=== PATIENT | male | born 1950 | race Caucasian/White ===

== ENCOUNTER 2016-10-12 07:03 | Day surgery (SDC) | payer MEDICARE ==
[2016-10-07 15:44] VITALS: BMI 24.9
[~2016-10-12 07:03] MED LIST: LACTATED RINGERS 1,000 ML IV SCH
[2016-10-12 07:18] VITALS: TEMP 97.8
[2016-10-12] MEDS ORDERED: fentaNYL (PF) 50 MCG/ML 2 ML AMP ONE (08:06)
[2016-10-12] MEDS ORDERED: PROPOFOL 10 MG/ML 20 ML VIAL IV ONE (08:06)
[2016-10-12] MEDS ORDERED: MIDAZOLAM 2 MG/2 ML VIAL ONE (08:06)
--- NOTE | 2016-10-12 08:10 | P.GSHP ---
History of Present Illness H&P Date: 10/12/16 Chief Complaint: Screening colonoscopy This is a 66-year-old male who presents today for screening colonoscopy. His last colonoscopy approximately 8 years ago. Patient denies any significant GI complaints. - Constitutional Constitutional: Reports as per HPI Past Medical History Past Medical History: Cancer, Hyperlipidemia, Prostate Disorder Additional Past Medical History / Comment(s): BPH. Basal and Squamous cell CA. History of Any Multi-Drug Resistant Organisms: None Reported Past Surgical History: Orthopedic Surgery Additional Past Surgical History / Comment(s): Colonoscopy x3. Tooth extractions. L knee arthroscopic surgery 2013. Multiple basal and squamous cell CA removals. Past Anesthesia/Blood Transfusion Reactions: No Reported Reaction Past Psychological History: No Psychological Hx Reported Smoking Status: Never smoker Past Alcohol Use History: Daily Additional Past Alcohol Use History / Comment(s): 2 glasses of wine/day. Past Drug Use History: None Reported - Past Family History Mother Family Medical History: Cancer Additional Family Medical History / Comment(s): Colon CA. Medications and Allergies Home Medications Medication Instructions Recorded Confirmed Type Ascorbic Acid [Vitamin C] 500 mg PO DAILY 10/07/16 10/12/16 History Aspirin [Adult Low Dose Aspirin EC] 81 mg PO [facility] 10/07/16 10/12/16 History Co Q-10 Unk 200 mg PO [facility] 10/07/16 10/12/16 History Fish Oil/Omega3 1 tab PO [facility] 10/07/16 10/12/16 History Simvastatin [Zocor] 20 mg PO HS 10/07/16 10/12/16 History Tamsulosin [Flomax] 0.4 mg PO [facility] 10/07/16 10/12/16 History Vitamin D3 Unk 5,000 unit PO M 10/07/16 10/12/16 History Allergies Allergy/AdvReac Type Severity Reaction Status Date / Time No Known Allergies Allergy Verified 10/07/16 15:17 Surgical - Exam Vital Signs Temp Pulse Resp BP Pulse Ox 97.8 F 74 16 126/81 94 L 10/12/16 07:17 10/12/16 07:17 10/12/16 07:17 10/12/16 07:17 10/12/16 07:17 - General well developed, no distress - Eyes PERRL - ENT normal pinna - Neck no masses - Respiratory normal expansion - Cardiovascular Rhythm: regular - Abdomen Abdomen: soft, non tender Assessment and Plan Plan: We will perform screening colonoscopy.
--- NOTE | 2016-10-12 08:32 | P.OP ---
Date of Procedure: 10/12/16 Preoperative Diagnosis: Screening colonoscopy Postoperative Diagnosis: Normal Screening colonoscopy Procedure(s) Performed: Colonoscopy Anesthesia: MAC Surgeon: Giovanny Cleaning Pathology: none sent Condition: stable Disposition: PACU Description of Procedure: PROCEDURE: The patient was placed on the endoscopy table in the lateral position. Digital rectal examination was performed which revealed no abnormalities. The prostate was symmetrical without nodules. Flexible colonoscope was then placed in the patient's anus and passed throughout the entire colon. The ileocecal valve was visualized. The cecum, ascending, transverse, descending and sigmoid colon were normal. The rectum was normal as well. There were no masses, polyps or diverticula noted in the entire colon. SUMMARY OF FINDINGS: Normal colonoscopy.
[2016-10-12 08:35] VITALS: RESP 18
[2016-10-12 09:16] VITALS: BP 117/74; PULSE 61
== END 2016-10-12 08:30 | disposition home or self-care (01) ==
LOC: ORWHC2ENDO 07:03
PROVIDERS: ATTEND Surgery
DX: Z12.11 Encounter for screening for malignant neoplasm of colon (principal); E78.5 Hyperlipidemia, unspecified; N42.9 Disorder of prostate, unspecified; Z79.82 Long term (current) use of aspirin; Z79.899 Other long term (current) drug therapy
CPT/HCPCS: J2250; J3010; J2704; G0121; 99153

== ENCOUNTER 2024-07-31 21:54 | Emergency (ER) | payer MEDICARE ==
--- NOTE | 2024-07-31 22:32 | ED ---
General Adult HPI - General Source: patient, RN notes reviewed, old records reviewed Mode of arrival: wheelchair <Steve Pedroza - Last Filed: 07/31/24 22:33> <Shamir Kim - Last Filed: 08/01/24 01:40> - General Chief complaint: Shortness of Breath Stated complaint: STANISLAV Time Seen by Provider: 07/31/24 22:05 - History of Present Illness Initial comments: Patient is a 74-year-old male presents emergency department for shortness of breath. Is been dealing with cold-like symptoms for approximately 3 days. Has been having a nonproductive cough. States it was progressively worsening throughout the day today however worsened approximately 1 hour ago which is why presents for further evaluation. Denies any known sick contacts. Endorses mild congestion. Denies sore throat. Denies abdominal pain, nausea, vomiting. D enies any chest pain. Is not a smoker. Has had issues with bronchospasms in the past. Patient has a history of atrial fibrillation as well. Vital signs within acceptable limits in triage. Presents for further evaluation. (Steve Pedroza) - Related Data Home Medications Medication Instructions Recorded Confirmed Aspirin [Adult Low Dose Aspirin EC] 81 mg PO QAM 10/07/16 10/25/22 Alfuzosin HCl [Alfuzosin HCl ER] 10 mg PO HS 05/31/22 10/25/22 Atorvastatin [Lipitor] 20 mg PO HS 05/31/22 10/25/22 Metoprolol Tartrate [Lopressor] 25 mg PO BID 10/25/22 10/25/22 Ubidecarenone [Co Q-10] 200 mg PO DAILY 10/25/22 10/25/22 Previous Rx's Medication Instructions Recorded Omeprazole [PriLOSEC] 20 mg PO AC-BRKFST #90 cap 11/02/22 Albuterol Inhaler [Ventolin Hfa 2 puff INHALATION Q4HR PRN #8 gm 08/01/24 Inhaler] predniSONE 60 mg PO DAILY #30 tab 08/01/24 Allergies Allergy/AdvReac Type Severity Reaction Status Date / Time No Known Allergies Allergy Verified 07/31/24 21:59 Review of Systems ROS Other: All systems not noted in ROS Statement are negative. <Steve Pedroza - Last Filed: 07/31/24 22:33> ROS Other: All systems not noted in ROS Statement are negative. <Shamir Kim - Last Filed: 08/01/24 01:40> ROS Statement: Those systems with pertinent positive or pertinent negative responses have been documented in the HPI. Review of Systems: CONST: Denies fever EYES: Denies blurry vision ENT: Denies nasal congestion C/V: Denies Chest pain RESP: Endorses dyspnea GI: Denies abdominal pain : Denies dysuria SKIN: Denies rash. MSK: Denies joint pain. NEURO: Denies headache (Steve Pedroza) Past Medical History Past Medical History: Atrial Fibrillation, Cancer, Hyperlipidemia, Prostate Disorder Additional Past Medical History / Comment(s): BPH. Basal and Squamous cell skin cancer., states some abnormal wbc's and rbc's (no tx)., frequent stools. History of Any Multi-Drug Resistant Organisms: None Reported Past Surgical History: Hernia Repair, Orthopedic Surgery Additional Past Surgical History / Comment(s): Colonoscopy x4. Tooth extracti ons. L knee arthroscopic surgery 2013. Multiple basal and squamous cell CA removals. Past Anesthesia/Blood Transfusion Reactions: No Reported Reaction Past Psychological History: No Psychological Hx Reported Smoking Status: Never smoker Past Alcohol Use History: Daily Past Drug Use History: None Reported - Past Family History Mother Family Medical History: Cancer Additional Family Medical History / Comment(s): Colon CA. <Steve Pedroza - Last Filed: 07/31/24 22:33> General Exam <Steve Pedroza - Last Filed: 07/31/24 22:33> - General Exam Comments Initial Comments: General: Appears in no acute distress. HEAD: Normal with no signs of head trauma. EYES: PERRLA, EOMI, conjunctiva normal, no discharge. ENT: Hearing grossly intact, normal oropharynx. RESPIRATORY: Patient has bilateral end expiratory wheezing. No significant increased work of breathing. No significant hypoxia. C/V: Regular rate and rhythm. S1 and S2 auscultated, no edema, peripheral pulses 2+ and intact throughout ABD: Abd is soft, nontender, nondistended EXT: Normal range of motion, no obvious deformity SKIN: No rashes or lesions observed on exposed skin. NEURO: Alert and oriented x 4. (Steve Pedroza) Course Vital Signs 07/31/24 07/31/24 07/31/24 21:55 22:00 23:23 Temperature 98.1 F Pulse Rate 83 70 Respiratory 18 18 Rate Blood Pressure 151/88 O2 Sat by Pulse 97 Oximetry 07/31/24 07/31/24 23:31 23:50 Temperature Pulse Rate 72 73 Respiratory 16 Rate Blood Pressure 145/79 O2 Sat by Pulse 97 Oximetry Medical Decision Making - EKG Data -: EKG Interpreted by Me <Steve Pedroza - Last Filed: 07/31/24 22:33> - Lab Data Result diagrams: 07/31/24 22:26 07/31/24 22:26 <Shamir Kim - Last Filed: 08/01/24 01:40> - Medical Decision Making Was pt. sent in by a medical professional or institution (, PA, DETENTION ATTENDANT, urgent care, hospital, or correction...) When possible be specific @ -No Did you speak to anyone other than the patient for history (EMS, parent, family, police, friend...)? What history was obtained from this source @ -No Did you review nursing and triage notes (agree or disagree)? Why? @ -I reviewed and agree with nursing and triage notes Were old charts reviewed (outside hosp., previous admission, EMS record, old EKG, old radiological studies, urgent care reports/EKG's, correction records)? Report findings @ -No old charts were reviewed Differential Diagnosis (chest pain, altered mental status, abdominal pain women, abdominal pain men, vaginal bleeding, weakness, fever, dyspnea, syncope, headache, dizziness, GI bleed, back pain, seizure, CVA, palpatations, mental health, musculoskeletal)? @ -Differential Dyspnea: Coronary syndrome, arrhythmia, tamponade, asthma, COPD, pulmonary embolism, pneumonia, pneumothorax, pulmonary effusion, anaphylaxis, diabetic ketoacidosis, flailed chest, pulmonary contusion, diaphragmatic rupture, anemia, neuromuscular, this is not meant to be an all-inclusive list. EKG interpreted by me (3pts min.). @ -As above X-rays interpreted by me (1pt min.). @ -Chest x-ray reveals no obvious pneumothorax. CT interpreted by me (1pt min.). @ -None done U/S interpreted by me (1pt. min.). @ -None done What testing was considered but not performed or refused? (CT, X-rays, U/S, labs)? Why? @ -None What meds were considered but not given or refused? Why? @ -None Did you discuss the management of the patient with other professionals (professionals i.e. , PA, DETENTION ATTENDANT, lab, RT, psych nurse, social work specialist, stove refinisher, teacher, event security officer, social work case manager)? Give summary @ -No Was smoking cessation discussed for >3mins.? @ -No Was critical care preformed (if so, how long)? @ -No Were there social determinants of health that impacted care today? How? (Homelessness, low income, unemployed, alcoholism, drug addiction, transportation, low edu. Level, literacy, decrease access to med. care, custodial, rehab)? @ -No Was there de-escalation of care discussed even if they declined (Discuss DNR or withdrawal of care, Hospice)? DNR status @ -No What co-morbidities impacted this encounter? (DM, HTN, Smoking, COPD, CAD, Cancer, CVA, ARF, Chemo, Hep., AIDS, mental health diagnosis, sleep apnea, morbid obesity)? @ -None Was patient admitted / discharged? Hospital course, mention meds given and route, prescriptions, significant lab abnormalities, going to OR and other pertinent info. @ -Patient presents emergency department with multiple days of cold-like symptoms progressing to worsening shortness of breath today. On exam patient is wheezing bilaterally despite no clinical history of COPD or asthma. May have bronchospasm. Will obtain viral swabs, basic labs, screening EKG, chest x-ray. Patient will be symptomatically treated with IV steroids, fluids, breathing tr eatment. Patient in agreement this plan. Portable chest x-ray reveals no of obvious evidence of pneumothorax. EKG shows no signs of acute ischemia. Undiagnosed new problem with uncertain prognosis? @ -No Drug Therapy requiring intensive monitoring for toxicity (Heparin, Nitro, Insulin, Cardizem)? @ -No Were any procedures done? @ -No (Steve Pedroza) - Lab Data Lab Results 07/31/24 07/31/24 07/31/24 Range/Units 22:26 22:26 22:26 WBC 7.9 (3.8-10.6) k/uL RBC 4.53 (4.30-5.90) m/uL Hgb 14.7 (13.0-17.5) gm/dL Hct 44.5 (39.0-53.0) % MCV 98.2 (80.0-100.0) fL MCH 32.4 (25.0-35.0) pg MCHC 33.0 (31.0-37.0) g/dL RDW 13.0 (11.5-15.5) % Plt Count 194 (150-450) k/uL MPV 7.7 Neutrophils % 77 % Lymphocytes % 14 % Monocytes % 5 % Eosinophils % 2 % Basophils % 1 % Neutrophils # 6.1 (1.3-7.7) k/uL Lymphocytes # 1.1 (1.0-4.8) k/uL Monocytes # 0.4 (0-1.0) k/uL Eosinophils # 0.2 (0-0.7) k/uL Basophils # 0.1 (0-0.2) k/uL Sodium 135 L (137-145) mmol/L Potassium 4.0 (3.5-5.1) mmol/L Chloride 106 (98-107) mmol/L Carbon Dioxide 23 (22-30) mmol/L Anion Gap 6 mmol/L BUN 23 H (9-20) mg/dL Creatinine 0.77 (0.66-1.25) mg/dL Est GFR (CKD-EPI)AfAm >90 (>60 ml/min/1.73 sqM) Est GFR (CKD-EPI)NonAf 90 (>60 ml/min/1.73 sqM) Glucose 91 (74-99) mg/dL Calcium 9.3 (8.4-10.2) mg/dL Magnesium 2.0 (1.6-2.3) mg/dL Total Bilirubin 0.6 (0.2-1.3) mg/dL AST 30 (17-59) U/L ALT 32 (4-49) U/L Alkaline Phosphatase 86 (38-126) U/L Total Protein 7.4 (6.3-8.2) g/dL Albumin 4.8 (3.5-5.0) g/dL Influenza Type A (PCR) Not Detected (Not Detectd) Influenza Type B (PCR) Not Detected (Not Detectd) RSV (PCR) Not Detected (Not Detectd) SARS-CoV-2 (PCR) Not Detected (Not Detectd) - EKG Data EKG Comments: 12-lead Electrocardiogram Interpretation Note EKG was reviewed and interpreted by myself. 12-lead ECG performed at 2207 is interpreted by me as revealing normal sinus rhythm at a rate of 83 beats per minute. [place] is normal. IN interval is 163 ms, QRS duration is 100 ms, QTc is 411 ms.. There were no ST or T wave abnormalities to suggest myocardial ischemia or injury. R wave progression across the precordium was satisfactory. By my interpretation this EKG is non-diagnostic for acute ischemia. (Steve Pedroza) Disposition <Steve Pedroza - Last Filed: 07/31/24 22:33> Is patient prescribed a controlled substance at d/c from ED?: No <Shamir Kim - Last Filed: 08/01/24 01:40> Clinical Impression: Bronchitis Disposition: HOME SELF-CARE Condition: Good Instructions (If sedation given, give patient instructions): Acute Bronchitis (ED) Prescriptions: predniSONE 60 mg PO DAILY #30 tab Albuterol Inhaler [Ventolin Hfa Inhaler] 2 puff INHALATION Q4HR PRN #8 gm PRN Reason: Wheezing Referrals: Alberto Saleh MD [Primary Care Provider] - 1-2 days
--- NOTE | 2024-07-31 22:33 | XR ---
EXAMINATION TYPE: XR chest 1V portable DATE OF EXAM: 07/31/2024 COMPARISON: NONE HISTORY: Cough. TECHNIQUE: Single AP portable frontal upright view of the chest is obtained. FINDINGS: Overlying EKG leads are seen. There is no focal air space opacity, pleural effusion, or pn eumothorax seen. The cardiac silhouette size is within normal limits. The osseous structures are i ntact. IMPRESSION: No acute pulmonary infiltrate. [facility], , 07/31/2024 10:31 PM
[2024-07-31 22:41] LABS: Basophils # (A) 0.1 k/uL (0-0.2); Basophils % (A) 1 %; Eosinophils # (A) 0.2 k/uL (0-0.7); Eosinophils % (A) 2 %; HCT 44.5 % (39.0-53.0); HGB 14.7 gm/dL (13.0-17.5); Lymphocytes # (A) 1.1 k/uL (1.0-4.8); Lymphocytes % (A) 14 %; MCH 32.4 pg (25.0-35.0); MCV 98.2 fL (80.0-100.0); Mean Platelet Volume 7.7; Monocytes # (A) 0.4 k/uL (0-1.0); Monocytes % (A) 5 %; Neutrophils # (A) 6.1 k/uL (1.3-7.7); Neutrophils % (A) 77 %; Platelet Count 194 k/uL (150-450); RBC 4.53 m/uL (4.30-5.90); WBC 7.9 k/uL (3.8-10.6)
[2024-07-31] MEDS: SODIUM CHLORIDE 0.9% 1,000 ML IV STA (22:47)
[2024-07-31] MEDS: methylPREDNISolone SOD SUCCI 125 MG/2 ML VIAL IV STA (22:47)
[2024-07-31 22:51] LABS: ALT 32 U/L (4-49); AST 30 U/L (17-59); African American GFR (CKD) >90 (>60 ml/min/1.73 sqM); Albumin 4.8 g/dL (3.5-5.0); Alkaline Phosphatase 86 U/L (38-126); Anion Gap 6 mmol/L; Blood Urea Nitrogen 23 mg/dL (9-20); Calcium 9.3 mg/dL (8.4-10.2); Carbon Dioxide 23 mmol/L (22-30); Chloride 106 mmol/L (98-107); Glucose 91 mg/dL (74-99); Non-African American GFR(CKD) 90 (>60 ml/min/1.73 sqM); Sodium 135 mmol/L (137-145); Total Bilirubin 0.6 mg/dL (0.2-1.3); Total Protein 7.4 g/dL (6.3-8.2)
[2024-07-31] MEDS: IPRATROPIUM-ALBUTEROL 3 ML NEB INHALATION STA (23:23)
[2024-07-31 23:51] VITALS: RESP 16
--- NOTE | 2024-07-31 23:51 | XR ---
EXAMINATION TYPE: XR chest 1V DATE OF EXAM: 07/31/2024 COMPARISON: Chest x-ray earlier today HISTORY: Difficulty breathing, rule out pneumothorax TECHNIQUE: Single lateral view of the chest is obtained. FINDINGS: There is no obvious new focal air space opacity, pleural effusion, or pneumothorax seen on lateral view. IMPRESSION: As above. [facility], , 07/31/2024 11:49 PM
[2024-08-01] MEDS: IPRATROPIUM-ALBUTEROL 3 ML NEB INHALATION STA (00:10)
[2024-08-01 01:51] VITALS: BP 131/81; PULSE 66; TEMP 98
== END 2024-08-01 01:51 | disposition home or self-care (01) ==
LOC: EC 21:54
DX: J40 Bronchitis, not specified as acute or chronic (principal)
CPT/HCPCS: 36415; 94640; 93005; 80053; 83735; 85025; 87636; 71045; 99285; 96374; 96361; J2919